=== PATIENT | female | born 2000 | race Caucasian/White ===

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

== ENCOUNTER 2018-11-16 13:48 | Emergency (ER) | payer BC ==
[2018-11-16] MEDS ORDERED: Ondansetron INJ* 2 MG/ML VIAL IV ONE (14:54)
[2018-11-16] MEDS ORDERED: NS 0.9% 1000 ML** 1,000 ML IV ONE (14:54)
[2018-11-16 15:07] LABS: ABS Basophils 0.1 10^3/ul (0-0.2); ABS Monocytes 0.6 10^3/ul (0-0.8); Eosinophil % 0.4 %; Hematocrit 37 % (35-47); Hemoglobin 12.4 g/dL (12.0-16.0); Lymphocyte % 42.9 %; Mean Corpuscular HGB Conc 34 g/dL (31-36); Mean Corpuscular Hemoglobin 26 pg (27-31); Mean Corpuscular Volume 79 fL (80-97); Mean Platelet Volume 7.7 fL (7.4-10.4); Nucleated Red Blood Cells % 0.1; Platelet Count 284 10^3/uL (150-450); Red Blood Count 4.68 10^6 /uL (3.70-4.87); Red Cell Distribution Width 13 % (10.5-15); White Blood Count 4.7 10^3/uL (3.5-10.8)
--- NOTE | 2018-11-16 15:14 | ED ---
Nausea/Vomiting/Diarrhea HPI - HPI Summary HPI Summary: Patient is a 18-year-old female presenting to the ED with nausea, vomiting, diarrhea, generalized body aches 4 days. She states she had her period the previous week and accidentally left tampon in place. She was able to dislodge the tampon on Thursday and began to feel ill on . She was worried about a toxic shock syndrome. She denies any fevers, sweats, chills. She denies any rashes. Last bowel movement was this morning and was loose, however has had no bowel movement 8 hours. She is also endorsing nausea and vomiting, which has been intermittent and last episode of vomiting was yesterday. Denies urinary symptoms, vaginal bleeding or vaginal discharge or malodorous discharge. Denies any back pain. Denies any weakness or fatigue. She states she has not been eating anything abnormal. - History of Current Complaint Chief Complaint: EDNauseaVomitDiarrh Stated Complaint: SYMPTOMS OF TSS PER PT Time Seen by Provider: 11/16/18 13:54 Hx Obtained From: Patient Hx Last Menstrual Period: 04/25/15 ?: No Onset/Duration: Sudden Onset Timing: Constant Severity Initially: Mild Severity Currently: Mild Pain Intensity: 5 Pain Scale Used: 0-10 Numeric Character: Cramping Aggravating Factor(s): Food Alleviating Factor(s): Nothing Vomiting Frequency: Every 3-4 hours Nausea/Vomiting Duration: 24-36 hours Diarrhea Presence: Yes Diarrhea Frequency: Every 3-4 hours Diarrhea Duration: 24-36 hours - Risk Factors Influenza Risk Factors: Negative Surgical Obstruction Risk Factor(s): Negative - Allergies/Home Medications Allergies/Adverse Reactions: Allergies Allergy/AdvReac Type Severity Reaction Status Date / Time No Known Allergies Allergy Verified 11/16/18 13:53 Home Medications: Home Medications Paragard IUD 1 implant VAGINAL ONCE 11/16/18 [History Confirmed 11/16/18] PMH/Surg Hx/FS Hx/Imm Hx Previously Healthy: Yes Endocrine/Hematology History: Denies: Hx Anticoagulant Therapy Respiratory History: Reports: Hx Asthma Denies: Hx Pneumonia - Immunization History Hx Pertussis Vaccination: No Immunizations Up to Date: Yes Infectious Disease History: No Infectious Disease History: Denies: Traveled Outside the [place] in Last 30 Days - Family History Known Family History: Positive: Other - Asthma - Social History Occupation: Employed Part-time Lives: With Family Alcohol Use: Rare Hx Substance Use: No Substance Use Type: Reports: None Smoking Status (MU): Never Smoked Tobacco Have You Smoked in the Last Year: No Review of Systems Constitutional: Negative Negative: Fever, Chills, Fatigue, Skin Diaphoresis Negative: Palpitations, Chest Pain Negative: Shortness Of Breath, Cough Positive: Vomiting, Diarrhea, Nausea Genitourinary: Negative Positive: no symptoms reported, see HPI Negative: Arthralgia, Myalgia Skin: Negative Negative: Headache, Weakness, Paresthesia, Numbness All Other Systems Reviewed And Are Negative: Yes Physical Exam Triage Information Reviewed: Yes Vital Signs On Initial Exam: Initial Vitals Temp Pulse Resp BP Pulse Ox 98.6 F 85 16 126/84 96 11/16/18 13:51 11/16/18 13:51 11/16/18 13:51 11/16/18 13:51 11/16/18 13:51 Vital Signs Reviewed: Yes Appearance: Positive: Well-Appearing, Well-Nourished Skin: Positive: Warm, Skin Color Reflects Adequate Perfusion Head/Face: Positive: Normal Head/Face Inspection Eyes: Positive: EOMI, ALEKSEY, Conjunctiva Clear Neck: Positive: Supple, No Lymphadenopathy Respiratory/Lung Sounds: Positive: Clear to Auscultation, Breath Sounds Present Cardiovascular: Positive: RRR, Pulses are Symmetrical in both Upper and Lower Extremities. Negative: Tachycardia, Leg Edema Left, Leg Edema Right Abdomen Description: Positive: Nontender, Soft. Negative: CVA Tenderness (R), CVA Tenderness (L), Distended Bowel Sounds: Positive: Present Musculoskeletal: Positive: Normal, Strength/ROM Intact Neurological: Positive: Sensory/Motor Intact, Alert, Oriented to Person Place, Time, Speech Normal Psychiatric: Positive: Normal, Affect/Mood Appropriate AVPU Assessment: Alert Diagnostics - Vital Signs Vital Signs Temp Pulse Resp BP Pulse Ox 11/16/18 14:56 98.1 F 11/16/18 14:55 71 111/83 100 11/16/18 13:51 98.6 F 85 16 126/84 96 - Laboratory Lab Results: Lab Results 11/16/18 Range/Units 14:59 WBC 4.7 (3.5-10.8) 10^3/uL RBC 4.68 (3.70-4.87) 10^6 /uL Hgb 12.4 (12.0-16.0) g/dL Hct 37 (35-47) % MCV 79 L (80-97) fL MCH 26 L (27-31) pg MCHC 34 (31-36) g/dL RDW 13 (10.5-15) % Plt Count 284 (150-450) 10^3/uL MPV 7.7 (7.4-10.4) fL Neut % (Auto) 43.0 % Lymph % (Auto) 42.9 % [place] % (Auto) 12.6 % Eos % (Auto) 0.4 % Baso % (Auto) 1.1 % Absolute Neuts (auto) 2.0 (1.5-7.7) 10^3/ul Absolute Lymphs (auto) 2.0 (1.0-4.8) 10^3/ul Absolute Monos (auto) 0.6 (0-0.8) 10^3/ul Absolute Eos (auto) 0.0 (0-0.6) 10^3/ul Absolute Basos (auto) 0.1 (0-0.2) 10^3/ul Absolute Nucleated RBC 0.0 10^3/ul Nucleated RBC % 0.1 Result Diagrams: 11/16/18 14:59 11/16/18 14:59 Lab Statement: Any lab studies that have been ordered have been reviewed, and results considered in the medical decision making process. Naus/Vom/Diarrhea Course/Dx - Course Course Of Treatment: During his course of treatment, the patient is evaluated for nausea, vomiting, diarrhea. She has had symptoms intermittently 5-6 days. She continues to eat and drink, however less. She is concerned over toxic shock syndrome. Physical examination, patient appears well, nondiaphoretic and nontoxic in appearing. She is smiling on exam and denies any symptoms other than some mild nausea at this time. She also feels she is dehydrated as she has been having decreased by mouth intake. No cervical lymphadenopathy bilaterally. There are no rashed throughout. No diaphoresis. Skin warm and dry. EOMI/PERRLA. CTA. RRR. Bowel sounds normoactive without pain on palpation to all 4 quadrants. Good strength in bilateral upper and lower extremities. No neuro deficits noted. Patient is ambulating well. Labs obtained, UA obtained. Normal saline given and Zofran given in the ED. Patient is feeling improved following medications. UA shows no evidence of UTI. Patient will be DC'd home with N/V/D. - Differential Dx/Diagnosis Provider Diagnosis: Nausea & vomiting, Diarrhea Condition At Discharge: Stable Discharge - Sign-Out/Discharge Documenting (check all that apply): Patient Departure Patient Received Moderate/Deep Sedation with Procedure: No - Discharge Plan Condition: Stable Disposition: HOME Prescriptions: Ondansetron ODT TAB* [Zofran 4 MG Odt TAB*] 4 mg PO Q6H PRN #12 tab.odt MDD 4 PRN Reason: Nausea Patient Education Materials: Acute Nausea and Vomiting (ED) Referrals: Zachariah NAZARIO,Carlton Brush [Primary Care Provider] - Additional Instructions: As discussed, this is likely a viral illness Zofran as needed for N/V Drink plenty of fluids Eat a well balanced diet If you continue to have symptoms - please return to the ED or follow up with PCP Rest as much as possible Get sleep - Billing Disposition and Condition Condition: STABLE Disposition: Home
[2018-11-16 15:24] LABS: Albumin 4.3 g/dL (3.2-5.2); Calcium 9.3 mg/dL (8.6-10.3); Potassium 3.4 mmol/L (3.5-5.0); Total Bilirubin 0.3 mg/dL (0.2-1.0)
[2018-11-16 15:30] LABS: Albumin/Globulin Ratio 1.9 (1-3); BUN/Creatinine Ratio 8.3 (8-20); C Reactive Protein 9.9 mg/L (<8.01); EGFR African American 104.6 (>60); EGFR Non-African American 86.4 (>60); Globulin 2.3 g/dL (2-4); Total Protein 6.6 g/dL (6.4-8.9)
[2018-11-16 16:23] LABS: Urine Appearance Clear; Urine Bacteria Absent (Absent); Urine Bilirubin Negative (Negative); Urine Blood Negative (Negative); Urine Color Straw; Urine Glucose Negative (Negative); Urine Ketones Trace (Negative); Urine Nitrite Negative (Negative); Urine Protein Negative (Negative); Urine Red Blood Cell Trace(0-2/hpf) (Absent); Urine Specific Gravity 1.002 (1.010-1.030); Urine Squamous Epithelial Cell Present (Absent); Urine Urobilinogen Negative (Negative); Urine White Blood Cell Trace(0-5/hpf) (Absent)
[2018-11-16 16:52] VITALS: BP 109/69
== END 2018-11-16 16:52 | disposition home or self-care (01) ==
LOC: ED 13:48
DX: R11.2 Nausea with vomiting, unspecified (principal); R19.7 Diarrhea, unspecified; R52 Pain, unspecified
CPT/HCPCS: 36415; 80053; 81003; 81015; 83605; 85025; 86140; 87086; 96374; 99282; J2405

== ENCOUNTER 2019-03-24 13:35 | Emergency (ER) | payer BC ==
[2019-03-24 15:01] VITALS: BP 108/71
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
== END 2019-03-24 15:00 | disposition home or self-care (01) ==
LOC: ED 13:35
DX: S06.0X9A Concussion with loss of consciousness of unspecified duration, initial encounter (principal); X58.XXXA Exposure to other specified factors, initial encounter; Y92.9 Unspecified place or not applicable; F17.200 Nicotine dependence, unspecified, uncomplicated
CPT/HCPCS: 99282